=== PATIENT | male | born 1960 | race African-American/Black ===

== ENCOUNTER 2024-03-19 07:30 | Inpatient (IN) ==
[2024-05-07] MEDS ORDERED: Sodium Citrate/Citric Acid LIQ 15 ML UDC ONE (06:24)
[2024-05-07] MEDS ORDERED: ceFAZolin 2 GM PREMIX 2 GM/50 ML BAG ONE (06:24)
[2024-05-07 06:52] LABS: Rapid COVID-19 Molecular Undetected (Undetected)
[2024-05-07] MEDS ORDERED: Lidocaine 2% PF 5 ML VIAL ONE (06:57)
[2024-05-07] MEDS ORDERED: Sevoflurane BOTTLE ONE (06:57)
[2024-05-07] MEDS ORDERED: fentaNYL 100 mcg/2 ml 50 MCG/ML VIAL ONE ×2 (06:57→10:33)
[2024-05-07] MEDS ORDERED: Midazolam 2 mg/2 ml VIAL 1 mg/ml 2 ml VIAL (2 mg) ONE (06:57)
[2024-05-07] MEDS: Sodium Citrate/Citric Acid LIQ 15 ML UDC PO ONE (07:03)
[2024-05-07] MEDS ORDERED: Rocuronium 50 mg VIAL 10 mg/ml 5 ml VIAL (50 mg) ONE ×2 (07:05→08:34)
[2024-05-07] MEDS ORDERED: KETAMINE HCL 10 MG/ML 20 ml VIAL (200 MG) ONE (07:07)
[2024-05-07] MEDS ORDERED: Vancomycin 1,000 MG VIAL ONE (07:15)
[2024-05-07] MEDS ORDERED: Glycopyrrolate IV 0.2 MG/ML 1 ML VIAL ONE (07:53)
[2024-05-07] MEDS ORDERED: HYDROmorphone 0.5 MG/0.5 ML SYRINGE ONE (07:56)
[2024-05-07] MEDS ORDERED: Dexamethasone IV 4 MG/ML VIAL 1 ml VIAL ONE (07:59)
[2024-05-07] MEDS ORDERED: Acetaminophen IV 1 GM/100ML 1,000 MG/100 ML BAG IV ONE (08:27)
[2024-05-07] MEDS ORDERED: Ondansetron 4 mg VIAL 2 MG/ML 2 ml VIAL ONE (08:45)
[2024-05-07] MEDS ORDERED: Metoclopramide 5 MG/ML VIAL (10 mg) ONE (08:45)
[2024-05-07] MEDS ORDERED: Morphine 2 MG/ML SYRINGE IV PRN (11:45)
[2024-05-07] MEDS ORDERED: Lactulose 30 ml UDC PO PRN (11:45)
[2024-05-07] MEDS ORDERED: Ondansetron ODT 4 mg TAB 4 MG TAB PO PRN (11:45)
[2024-05-07] MEDS ORDERED: Magnesium Hydroxide LIQ 30 ML UDC PO PRN (11:45)
[2024-05-07] MEDS ORDERED: Calcium Carb (TUMS) 500 mg CHEW TAB PO PRN (11:45)
[2024-05-07] MEDS: Lactated Ringers 1000 ml BAG 1,000 ML IV SCH ×3 (12:31→13:30)
[2024-05-07] MEDS: Buffered Lidocaine 1% SYRIN 1 ml INTRADERM ONE ×2 (12:31→12:55)
[2024-05-07] MEDS ORDERED: fentaNYL 100 mcg/2 ml 50 MCG/ML VIAL IV PRN (12:31)
[2024-05-07] MEDS ORDERED: Ondansetron 4 mg VIAL 2 MG/ML 2 ml VIAL IV PRN (12:31)
[2024-05-07] MEDS ORDERED: Naloxone 0.4 mg VIAL 0.4 mg/ml 1 ml VIAL IV PRN (12:31)
[2024-05-07] MEDS ORDERED: Metoclopramide 5 MG/ML VIAL (10 mg) IV PRN (12:31)
[2024-05-07] MEDS: Scopolamine 1 mg/72hr PATCH TRANSDERM ONE (12:55)
[2024-05-07] MEDS: Acetaminophen IV 1 GM/100ML 1,000 MG/100 ML BAG IV ONE (12:55)
[2024-05-07] MEDS ORDERED: NS 0.45% 1000 ml BAG 1,000 ML IV SCH (13:00)
[2024-05-07] MEDS: Ondansetron 4 mg VIAL 2 MG/ML 2 ml VIAL IV PRN (14:07)
[2024-05-07] MEDS: ceFAZolin 2 GM PREMIX 2 GM/50 ML BAG IV SCH (16:03)
[2024-05-07] MEDS: Magnesium Hydroxide LIQ 30 ML UDC PO SCH (20:33)
[2024-05-08 05:34] LABS: Hematocrit 31.1 % (38-53); Hemoglobin 10.5 g/dL (13.2-16.3); Mean Platelet Volume 9.3 fL (7.5-11.2); Platelet Count 180 10^3/uL (150-450)
[2024-05-08 06:00] LABS: Calcium 8.8 mg/dL (8.6-10.3); Creatinine, Serum 1.12 mg/dL (0.67-1.17); Potassium 4.2 mmol/L (3.5-5.0); eGFR CKD-EPI 72.9 (>60)
[2024-05-08] MEDS: Vitamin THERAPEUTIC TAB PO SCH (08:03)
[2024-05-08 09:54] VITALS: BP 130/79
== END 2024-05-08 13:00 | DRG 301 ==
LOC: AA → INTOOBSV 05-07 06:06 → AA 05-07 06:06 → SSU 05-07 12:56
PROVIDERS: ADMIT Orthopaedic Surgery; ATTEND Orthopaedic Surgery